=== PATIENT | female | born 1980 | race Caucasian/White ===

== ENCOUNTER 2017-07-17 05:48 | Day surgery (SDC) | payer BC, OTHER ==
[2017-07-14 09:12] VITALS: BMI 25.0
--- NOTE | 2017-07-14 09:59 | HP ---
Admitting History and Physical - Primary Care Physician PCP: Lorelei Fish - Admission Chief Complaint: right shoulder mass History of Present Illness: 36 yo female with h/o of multiple lipoma excisions was noted to have a right shoulder mass which is now becoming tender with pressure. Patient denies any change in size. Patient is now presenting for WE of this mass. History Source: Patient Limitations to Obtaining History: No Limitations - Past Medical History ...LMP: 07/12/17 - Past Surgical History Additional Past Surgical History: Excision of lipomas right calf (1995) and left thigh (2015) - Smoking History Smoking history: Never smoked Have you smoked in the past 12 months: No - Alcohol/Substance Use Hx Alcohol Use: Yes (SOCIAL) Home Medications - Allergies Allergies/Adverse Reactions: Allergies Allergy/AdvReac Type Severity Reaction Status Date / Time Penicillins Allergy Severe Hives Verified 07/14/17 09:14 prochlorperazine Allergy Severe OPTICAL Verified 07/14/17 09:15 [From Compazine] SEIZURES Family Disease History - Family Disease History Other Family History: paternal GF (bone and prostate cancer 80s). father ( prostate cancer 60s) Review of Systems - Review of Systems Constitutional: reports: No Symptoms Cardiovascular: reports: No Symptoms Respiratory: reports: No Symptoms Physical Examination Constitutional: Yes: Well Nourished Cardiovascular: Yes: WNL Respiratory: Yes: WNL Extremities: Yes: Other (right posterior shoulder mass noted approx 3 x 3 cm) Problem List - Problems (1) Mass of shoulder region Code(s): R22.30 - LOCALIZED SWELLING, MASS AND LUMP, UNSPECIFIED UPPER LIMB Assessment/Plan WE of right shoulder mass
[2017-07-17] MEDS ORDERED: EPINEPHrine 1:1,000 1 MG/1 ML - 30ML VIAL (INJECTION) ONE (07:07)
[2017-07-17] MEDS ORDERED: LIDOCAINE HCL 1%, 10 MG/ML (20ML VIAL) ONE (07:13)
[2017-07-17] MEDS ORDERED: PROPOFOL 20 ML ONE ×2 (07:45)
[2017-07-17] MEDS ORDERED: MIDAZOLAM HCL 2 MG/2 ML SINGLE DOSE VIAL ONE ×2 (07:45)
[2017-07-17] MEDS ORDERED: KETOROLAC TROMETHAMINE 30 MG/1 ML VIAL IVPUSH ONE (08:36)
[2017-07-17] MEDS ORDERED: ONDANSETRON 4 MG/2 ML VIAL IVPUSH PRN ×2 (08:36→12:15)
[2017-07-17] MEDS ORDERED: DEXTROSE 5%-0.45% SALINE 1,000 ML IV SCH (08:45)
[2017-07-17] MEDS ORDERED: DEXAMETHASONE SOD PHOSPHATE 4 MG/1 ML VIAL ONE (08:50)
[2017-07-17] MEDS ORDERED: BUPIVACAINE HCL/PF 0.5% (5MG/ML) 10 ML VIAL ONE (09:21)
[2017-07-17 10:03] VITALS: TEMP 97.9
[2017-07-17 11:09] VITALS: BP 127/85; PULSE 86
[2017-07-17] MEDS ORDERED: LACTATED RINGERS SOLUTION 1,000 ML IV SCH (12:15)
[2017-07-17] MEDS ORDERED: oxyCODONE HCL 5 MG TABLET PO PRN (12:15)
--- NOTE | 2017-07-17 17:31 | OP ---
DATE OF OPERATION: 07/17/2017 PREOPERATIVE DIAGNOSIS: Right shoulder mass. POSTOPERATIVE DIAGNOSIS: Right shoulder mass. PROCEDURE: Excision of right shoulder mass. SURGEON: Lorelei Fish MD ISOLATION WASHER: SAVANNAH Parker ANESTHESIA: MAC. ANESTHESIOLOGIST: SPECIMEN: Right shoulder mass. ESTIMATED BLOOD LOSS: Minimal. INDICATION FOR PROCEDURE: The patient is a 36-year-old woman with a history of previous lipoma excisions on her thigh and right calf. She felt a mass in the right shoulder and came in for evaluation. She has had it there for several years, but it had not changed in size, but she recently noticed increasing tenderness. Excision was recommended. The procedure was explained, and risks and complications were discussed. The patient was identified in Ambulatory. Informed consent was obtained. The right shoulder was identified with a marker as the correct surgical site. DESCRIPTION OF PROCEDURE: She was taken to the operating room and placed on the operating table in the left lateral decubitus position. She was sedated. The right arm was prepped and draped in the usual fashion. Examination of the right shoulder showed a 3-cm mass in the posterior shoulder, which was soft and fleshy. The skin was infiltrated with 1% lidocaine. An incision was made overlying the mass. The incision was deepened, and fluid was expressed from the wound along with sebaceous material. The material was expressed, and electrocautery was used to remove the entire cyst wall. The cyst was large and extended deep into the wound. All cyst remnants were removed and sent to Pathology. The wound was irrigated, and hemostasis was achieved with electrocautery. The skin was then infiltrated with 0.25% Marcaine. The incision was closed after mobilizing the tissue to allow for a better closure. The deep tissue was closed with interrupted sutures of 2-0 Vicryl. The dermis was closed with interrupted sutures of 3-0 Vicryl, and the skin was closed with a running subcuticular closure of 4-0 Monocryl. The wound was cleaned and covered with Dermabond. Once the Dermabond had sufficiently dried, the incision was covered with gauze and Tegaderm. The patient tolerated the procedure well. At the end of the procedure, all sponge, lap, and instrument counts were correct. She was taken to Ambulatory in satisfactory condition. Luke [id number]
--- NOTE | 2017-07-22 15:45 | PATH ---
Surgical Pathology Report Patient Name: BARBRA WASHINGTON [facility]. Rec. #: [id number] /Age/Gender: 1980 (Age: 36) / F Account: [id number] Location: [facility] Taken: 07/17/2017 Received: 07/17/2017 Reported: 07/22/2017 Physicians: Lorelei Fish M.D. Specimen(s) Received RUPTURED EPIDERMAL INCLUSION CYST RIGHT SHOULDER Clinical History Preoperative diagnosis: Lipoma right shoulder Postoperative diagnosis: Ruptured epidermal inclusion cyst Final Diagnosis RUPTURED EPIDERMAL INCLUSION CYST, RIGHT SHOULDER, EXCISION: EPIDERMAL INCLUSION CYST. Electronically Signed Maribel Tony M.D. Gross Description Received in formalin labeled "ruptured epidermal inclusion cyst right shoulder," is a 3.3 x 2.7 x 0.3 cm aggregate of lira-osman portions of soft tissue, consistent with a disrupted cyst and cyst contents. Home [employer]ist Consumer Service sections are submitted in one cassette. /07/18/2017 saudi07/18/2017
== END 2017-07-17 11:00 | disposition home or self-care (01) ==
LOC: FASU 05:48
PROVIDERS: ATTEND Surgery
PROC: 0JBD0ZX Excision of Right Upper Arm Subcutaneous Tissue and Fascia, Open Approach, Diagnostic (ICD-10-PCS; principal; 2017-07-17 09:01)
DX: L72.3 Sebaceous cyst (principal); L72.0 Epidermal cyst
CPT/HCPCS: 84703; 88304-TC